=== PATIENT | male | born 1965 | race Caucasian/White ===

== ENCOUNTER 2021-01-27 12:35 | Emergency (ER) | payer BC, SELFPAY ==
[2021-01-27 12:36] VITALS: BP 167/99; PULSE 110; RESP 22; TEMP 38.1; O2SAT 95; BMI 43.0
--- NOTE | 2021-01-27 13:27 | NURSING ---
NO OLD EKGS
--- NOTE | 2021-01-27 13:31 | EX.ED.VIS.UR ---
HPI HPI - URI History of Present Illness Chief Complaint: Shortness of Breath Informant: patient Onset/Context/Timing Onset: Yesterday Context: Gradual Onset Timing: Continuous Current Severity: Mild Maximum Severity: Mild Associated Symptoms Associated Symptoms: Positive for Nonproductive cough Narrative Narrative: 55-year-old male history of hypertension, prediabetes, asthma and on CPAP at home for sleep apnea. Patient started having URI type symptoms yesterday with a cough and fever of 101. Mild headache and body aches. Today he was seen in the [facility] diagnosed with Covid and sent to the emergency department. He denies being short of breath. He had mild nausea and vomiting. He is not on home oxygen. He did get a [employer] vaccine. As did everyone in his home. Prior similar symptoms: No Recent Illness/Hospitalization: No ROS ROS ED ROS Narrative Cough, fever, body aches. Review of Systems ROS Unobtainable: Denies due to encephalopathy Constitutional Constitutional ED: Reports fever(s) Eyes Eyes: Denies change in vision ENT ENT ED: Denies ear pain or sore throat Cardiovascular Cardiovascular: Denies chest pain Respiratory/Chest Respiratory/Chest: Reports cough; Denies dyspnea Gastrointestinal Gastrointestinal: Reports nausea and vomiting; Denies abdominal pain or diarrhea Genitourinary Genitourinary ED: Denies dysuria Musculoskeletal Musculoskeletal: Denies myalgias Integumentary Denies rash Neurologic Neurologic: Denies headache(s) Psychiatric Psychiatric: Denies depression Endocrine Endocrinology: Denies polyuria Hematologic/Lymphatic Hematologic/Lymphatic: Denies easy bruising Allergic/Immunologic Allergic/Immunologic ED: Denies urticaria PFSH PFS Medical History Arthritis Asthma Chronic neck and back pain Hay fever HTN (hypertension) Knee pain Liver disease Seasonal allergies Severe headache Home Medications albuterol sulfate 90 mcg/actuation aerosol inhaler 1 inh INHALATION ONCE 01/27/21 [History Last Taken Unknown] dexamethasone [Decadron] 6 mg PO DAILY 7 Days #7 tab 01/27/21 [Rx Last Taken Unknown] lisinopril 2.5 mg tablet 2.5 mg PO DAILY 01/27/21 [History Last Taken Unknown] meloxicam 7.5 mg tablet 7.5 mg PO DAILY 01/27/21 [History Last Taken Unknown] omeprazole 10 mg capsule,delayed release 10 mg PO DAILY 01/27/21 [History Last Taken Unknown] Allergy/AdvReac Type Severity Reaction Status Date / Time No Known Allergies Allergy Unverified 01/27/21 12:38 Social History Smoking Status: Never smoker Smokeless tobacco user: snuff alcohol intake: never EXAM Physical Exam Narrative Exam Narrative: Distress. Pulse ox 95% on room air no signs of hypoxia. Temperature 100.5. HEENT exam unremarkable. Moist use membranes. Lungs clear to auscultation bilaterally. Heart regular rhythm rate about 100 no murmur. Abdomen obese but soft nontender normal bowel sounds no peritoneal signs. Moving all 4 extremities. No edema. Neurologically is awake alert with no focal motor deficits. Const Vital Signs: 01/27/21 12:36 Temperature 100.5 F H Temperature Source Temporal Pulse Rate 110 H Respiratory Rate 22 H Blood Pressure 167/99 H Blood Pressure Mean 121 Pulse Ox 95 Oxygen Delivery Method Room Air Positive well nourished, well developed and obese; Negative for cachectic or contractures General Appearance ED: well developed and NAD; Negative for cachectic, contractures, cyanotic, diaphoretic or pallor Nutritional Appearance: obese; Negative for cachectic HEENT normocephalic and atraumatic; Negative for scalp tenderness Face and Sinus: Negative for sinus tenderness or facial tenderness External Ear: external ears normal Eyes PERRL and EOMs intact bilaterally Neck no lymphadenopathy, supple, no meningeal signs and no JVD General: Negative for anterior neck swelling Resp normal respiratory effort and clear to auscultation bilaterally Auscultation: Negative for rales, rhonchi or wheezes Cardio S1 normal heart sound, S2 normal heart sound and no murmurs Rate: regular rate Rhythm: regular rhythm GI non-tender, non-distended and no masses Inspection: Negative for abdominal distention Auscultation: normoactive bowel sounds Palpation: soft; Negative for tender or guarding Back/Spine no CVA tenderness General Back: Negative for CVA tenderness Extremity normal to inspection General Extremety ED: Negative for tenderness Neuro oriented x3 Sensorium / Orientation: alert, oriented to person, oriented to place and oriented to time; Negative for orientation impaired, lethargic or stuporous Motor Exam: strength 5/5 throughout Psych mental status grossly normal Mood & Affect: Negative for depressed or tearful Skin General Skin Exam: Negative for jaundice or pallor Lesions: no lesions Rashes: no rashes MDM MDM MDM Narrative Medical decision making narrative: Well-appearing nonhypoxic middle-age male with Covid diagnosed today. Exam benign. Will obtain a chest x-ray. Otherwise he can be discharged to home. He will be referred to the monoclonal antibody therapy clinic. He was vaccinated however and should have a mild course if he goes by conventional means. Repeat exam patient is doing well. Be given a prescription for Decadron for the next 7 days. He will be referred to the monoclonal antibody therapy clinic to discuss possible treatment or not. I went over his chest x-ray results with he and his . Radiography Diagnostic Testing: Radiology Impression Chest X-Ray 01/27/21 13:50 IMPRESSION: Hyperinflation. The lungs are clear. Electronically Signed: Antoni Cifuentes MD at 14:02 EDT , Service support , Chest x-ray 2 views AP and lateral interpreted by myself and the radiologist shows no acute abnormality. No infiltrate. Discharge Plan Triage Chief Complaint: Shortness of Breath ED Provider: Ishmael Florentino Dx/Rx/DC Orders Clinical Impression: COVID-19 Instructions: Human Coronaviruses, Caring for Someone Who Has COVID-19 Prescriptions: New dexamethasone [Decadron] 6 mg tablet 6 mg PO DAILY 7 Days Qty: 7 RF: 0 No Action lisinopril 2.5 mg tablet 2.5 mg PO DAILY RF: 0 meloxicam 7.5 mg tablet 7.5 mg PO DAILY RF: 0 albuterol sulfate [Proventil HFA] 90 mcg/actuation HFA aerosol inhaler 1 inh inhalation ONCE RF: 0 omeprazole 10 mg capsule,delayed release(DR/EC) 10 mg PO DAILY RF: 0 Primary Care Provider: Care Physician,No Primary Referrals: Petey Clayton MD [STAFF PHYSICIAN] - 1 Week if not improving Care Physician,No Primary [Primary Care Provider] - Activity Restrictions/Additional Instructions: Take the Decadron daily. Plenty of fluids and rest. Tylenol Motrin for fever. Follow-up with the monoclonal antibody therapy center in the hospital you and then can discuss pros and cons of being treated. Disposition Disposition: Home, Self Care
--- NOTE | 2021-01-27 13:50 | RAD_ITS ---
STUDY: X-RAY CHEST REASON FOR EXAM: Male, 55 years old. covid TECHNIQUE: PA and lateral views of the chest. COMPARISON: None. FINDINGS: Hyperinflation. Lungs are clear. There is no demonstrated pleural abnormality. Normal size heart. Normal mediastinum and rachid. Normal visualized pulmonary arteries. Normal visualized aortic arch and descending thoracic aorta. Normal visualized thoracic spine. Normal visualized ribs, clavicles, and shoulders. There is no demonstrated abnormality of the visualized soft tissue structures of the upper abdomen. RAD/Chest PA and Lateral IMPRESSION: Hyperinflation. The lungs are clear. Electronically Signed: Antoni Cifuentes MD at 14:02 EDT , Service support ,
[2021-01-27 15:25] VITALS: RESP 18
== END 2021-01-27 15:26 | disposition home or self-care (01) ==
PROVIDERS: Emergency Provider Emergency Medicine
DX: U07.1 COVID-19 (principal); I10 Essential (primary) hypertension; R73.03 Prediabetes; G47.30 Sleep apnea, unspecified; J45.909 Unspecified asthma, uncomplicated; G89.29 Other chronic pain; Z79.899 Other long term (current) drug therapy
CPT/HCPCS: 71046; 99282